=== PATIENT | male | born 1980 | race Caucasian/White ===

== ENCOUNTER 2016-11-29 10:44 | Emergency (ER) | payer OTHER ==
[2016-11-29 10:57] VITALS: BP 114/81; PULSE 84; RESP 18; TEMP 97.8; O2SAT 97
--- NOTE | 2016-11-29 13:09 | C.PDOC ---
History Of Present Illness 36 year old male presents to the ED requesting information for a dental clinic. Patient states he has multiple dental caries and denies drainage from the gums, halitosis, fever, or any other complaints at this time. Chief Complaint (Nursing): Dental Pain History Per: Patient History/Exam Limitations: no limitations Onset/Duration Of Symptoms: Days Current Symptoms Are (Timing): Still Present Severity: Mild Past Medical History Reviewed: Historical Data, Nursing Documentation, Vital Signs Vital Signs: Last Vital Signs Temp 97.8 F 11/29/16 10:55 Pulse 84 11/29/16 10:55 Resp 18 11/29/16 10:55 BP 114/81 11/29/16 10:55 Pulse Ox 97 11/29/16 13:10 - Medical History PMH: No Chronic Diseases Family History: States: Unknown Family Hx - Social History Hx Alcohol Use: No Hx Substance Use: No Review Of Systems Except As Marked, All Systems Reviewed And Found Negative. Constitutional: Negative for: Fever ENT: Positive for: Other (+Dental caries). Negative for: Throat Pain Physical Exam - Physical Exam Appears: Non-toxic, No Acute Distress Skin: Normal Color, Warm, Dry Head: Atraumatic, Normacephalic Oral Mucosa: Moist Teeth: Caries (+Multiple dental caries), No Tender To Palpation, No Avulsed Throat: Normal, No Erythema, No Exudate Neck: Supple Neurological/Psych: Oriented x3, Normal Speech, Normal Cognition ED Course And Treatment O2 Sat by Pulse Oximetry: 97 (Room air) Pulse Ox Interpretation: Normal Progress Note: Rx given and patient given information regarding dental clinic. Disposition - Disposition Referrals: [facility]Outside[facility] Disposition: HOME/ ROUTINE Disposition Time: 11:45 Condition: GOOD Additional Instructions: Thank you for letting us take care of you today. Your provider was Dr. Knott. You were treated for dental pain. The emergency medical care you received today was directed at your acute symptoms. If you were prescribed any medication, please fill it and take as directed. It may take several days for your symptoms to resolve. Return to the Emergency Department if your symptoms worsen, do not improve, or if you have any other problems. Please contact your doctor or call one of the physicians/clinics you have been referred to that are listed on the Patient Visit Information form that is included in your discharge packet. Bring any paperwork you were given at discharge with you along with any medications you are taking to your follow up visit. Our treatment cannot replace ongoing medical care by a primary care provider (PCP) outside of the emergency department. Thank you for allowing the [facility] team to be part of your care today. Follow up with a dental clinic for care. We have provided you with some contact information. Prescriptions: Ibuprofen [Motrin] 600 mg PO Q6 PRN #20 tab PRN Reason: Pain, Moderate (4-7) Instructions: Dental Caries (ED) Forms: Gen Discharge Inst Ivorian Print Language: ARMENIAN - Clinical Impression Clinical Impression: Dental caries - Scribe Statement The provider has reviewed the documentation as recorded by the Scribe Chapito Collado. Provider Attestation: All medical record entries made by the Scribe were at my direction and personally dictated by me. I have reviewed the chart and agree that the record accurately reflects my personal performance of the history, physical exam, medical decision making, and the department course for this patient. I have also personally directed, reviewed, and agree with the discharge instructions and disposition.
== END 2016-11-29 12:04 | disposition home or self-care (01) ==
LOC: C.ER 10:44
DX: K02.9 Dental caries, unspecified (principal)

== ENCOUNTER 2016-12-28 21:39 | Emergency (ER) | payer MEDICAID, OTHER ==
[2016-12-28] MEDS ORDERED: Naproxen 550 mg Tab PO STA (22:07)
[2016-12-28] MEDS ORDERED: Naproxen 550 mg Tab PO ONE (22:09)
[2016-12-28 22:10] VITALS: BP 128/80; PULSE 69; RESP 18; TEMP 98.3; O2SAT 99
--- NOTE | 2016-12-28 22:12 | C.PDOC ---
History Of Present Illness Patient is a 36 year old male who presents to the ER with a complaint of right sided dental pain intermittently for the past 6 months. Patient states he was chewing an apple two days ago which exacerbated the pain. Patient also reports eating rice, a sandwich, and drinking milk today. Patient had an ED evaluation for the same symptoms one month ago, patient states he felt better and did not follow up. Patient also complaints of feeling pain and swelling when swallowing and states he gets these symptoms whenever he gets dental pain. Denies any recent trauma, fever, or vomiting. 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) History/Exam Limitations: language barrier Onset/Duration Of Symptoms: Days (6 months), Intermittent Episodes Current Symptoms Are (Timing): Still Present Recent travel outside of the [place] States: No Past Medical History Reviewed: Historical Data, Nursing Documentation, Vital Signs Vital Signs: Last Vital Signs Temp 98.3 F 12/28/16 22:10 Pulse 69 12/28/16 22:10 Resp 18 12/28/16 22:10 BP 128/80 12/28/16 22:10 Pulse Ox 99 12/28/16 22:10 - Medical History PMH: No Chronic Diseases Surgical History: No Surg Hx Family History: States: Unknown Family Hx - Social History Hx Alcohol Use: No Hx Substance Use: No Review Of Systems Constitutional: Negative for: Fever ENT: Positive for: Mouth Pain (Dental, right side) Gastrointestinal: Negative for: Vomiting Physical Exam - Physical Exam Appears: Well, Non-toxic, No Acute Distress Skin: Normal Color, Warm, Dry Head: Atraumatic, Normacephalic Eye(s): bilateral: Normal Inspection, EOMI Ear(s): Bilateral: Normal Nose: Normal Oral Mucosa: Moist Tongue: Normal Appearing, No Swelling, No Erythema Lips: No Swelling Teeth: Caries (Large, 2nd right mandibular premolar), Tender To Palpation (2nd right mandibular premolar) Gingiva: Erythema (around base of 2nd mandibular premolar), Swelling, Tender, No Abscess Throat: Normal, No Erythema, No Exudate, No Drooling Neck: Normal, Normal ROM, Supple Lymphatic: Adenopathy (Right sided ) Chest: Symmetrical, No Tenderness Cardiovascular: Rhythm Regular Respiratory: Normal Breath Sounds, No Accessory Muscle Use, Other (Speaking in complete sentences) Neurological/Psych: Oriented x3, Normal Speech, Other (No focal deficits) ED Course And Treatment Progress Note: Neck x-ray ordered, results show no acute abnormalities. Amoxicillin PO, lidocaine PO, and anaprox PO administered. Upon reevaluation, patient feels better and is able to tolerate PO. Speaking in full sentences. Patient will be discharged home and advised to follow up with dentist. Disposition - Disposition Referrals: [facility] [place] [Outside] Disposition: HOME/ ROUTINE Disposition Time: 22:09 Condition: STABLE Additional Instructions: Follow up with your dentist in tomorrow for further evaluation. Take medications as prescribed. Return to the emergency department at any time if symptoms persist or worsen. mutabaeat daniels tabib al'asnan alkhass bik fi alghad limazid min alttaqyiim. tanawal al'adwiat luther hu muhdd. aleawdat 'iilaa qism alttawari fi 'ay waqt ' iidha aistamarrat al'aerad 'aw tazdad shrestha'a. Prescriptions: Amoxicillin 875 mg PO BID #14 tablet Naproxen [Naprosyn] 1 tab PO BID PRN #20 tab PRN Reason: Pain Instructions: Toothache (ED) - Clinical Impression Clinical Impression: Toothache - Scribe Statement The provider has reviewed the documentation as recorded by the Scribanna Franco All medical record entries made by the Scribe were at my direction and personally dictated by me. I have reviewed the chart and agree that the record accurately reflects my personal performance of the history, physical exam, medical decision making, and the department course for this patient. I have also personally directed, reviewed, and agree with the discharge instructions and disposition.
--- NOTE | 2016-12-29 09:17 | RAD ---
PROCEDURE: Radiographs of the neck (soft tissue). HISTORY: pain COMPARISON: None. TECHNIQUE: Frontal and Lateral Radiographs of the neck, optimized for soft tissue visualization. FINDINGS: SOFT TISSUES: Unremarkable. No radiopaque foreign body seen. CERVICAL SPINE: Grossly unremarkable. OTHER FINDINGS: None. IMPRESSION: Unremarkable radiographs of the soft tissues of the neck. Preliminary report was submitted by virtual Radiology.
== END 2016-12-28 22:45 | disposition home or self-care (01) ==
LOC: C.ER 21:39
DX: K08.89 Other specified disorders of teeth and supporting structures (principal)

== ENCOUNTER 2017-01-03 13:42 | Emergency (ER) | payer OTHER ==
[2017-01-03 13:56] VITALS: BP 110/79; PULSE 84; RESP 16; TEMP 98; O2SAT 100
--- NOTE | 2017-01-03 14:40 | C.PDOC ---
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 36 yr old male presents to the ER for reevaluation of right sided tooth ache for the past 1 week. Patient states , pain is intermittent for past few months and worse for past week. Pt noted some swelling over Right lower face for the past 3-4 days associated with Right lower toothache. Pain is localized worse with chewing and pressure to the Right lower tooth. Patient was seen here in ED on 12/28/2016 for same complaint when received prescription for amoxicillin, tramadol and reports no improvement. Patient states " I took a 500mg dose of Amoxicillin from a friend which helped with the facial swelling" and is requesting the same medication. Otherwise, Patient denies high fever, chills, headache, dizziness, vertigo, trismus, drooling, CP, SOB, dyspnea, cough, denies recent dental work, throat swelling, neck pain. Ambulate to ED for evaluation, not in any apparent distress. Time Seen by Provider: 01/03/17 14:05 Chief Complaint (Nursing): Dental Pain History Per: Patient History/Exam Limitations: no limitations Onset/Duration Of Symptoms: Days (1 week) Past Medical History Reviewed: Historical Data, Nursing Documentation, Vital Signs Vital Signs: Last Vital Signs Temp 98 F 01/03/17 13:54 Pulse 84 01/03/17 13:54 Resp 16 01/03/17 13:54 BP 110/79 01/03/17 13:54 Pulse Ox 100 01/03/17 15:40 Family History: States: No Known Family Hx - Social History Hx Alcohol Use: No Hx Substance Use: No Review Of Systems Except As Marked, All Systems Reviewed And Found Negative. Constitutional: Negative for: Fever ENT: Positive for: Other ((+) Right sided tooth ache and swelling ). Negative for: Throat Swelling Musculoskeletal: Negative for: Neck Pain Neurological: Negative for: Weakness, Numbness Physical Exam - Physical Exam Appears: Well, Non-toxic, No Acute Distress Skin: Warm, No Dry Nose: No Discharge Oral Mucosa: Moist, No Drooling, No Trismus Tongue: Normal Appearing, No Swelling Lips: Normal Appearing, No Swelling Teeth: Caries (large cavity over Right lower overlying 2pre-and 1st molar), Tender To Palpation (Right lower overlying 2pre-and 1st molar) Gingiva: Erythema (Right lower overlying 2pre-and 1st molar), Swelling (Right lower overlying 2pre-and 1st molar), Abscess (early over Right lower overlying 2premolar, no flactulance.) Throat: Normal, No Erythema, No Exudate, No Drooling Neck: Normal ROM, Trachea Midline, Supple Lymphatic: No Adenopathy (cervical) Chest: Symmetrical Respiratory: No Decreased Breath Sounds, No Accessory Muscle Use, No Rales, No Rhonchi, No Stridor, No Wheezing Extremity: No Pedal Edema Neurological/Psych: Oriented x3, Normal Speech, Normal Motor ED Course And Treatment O2 Sat by Pulse Oximetry: 100 Pulse Ox Interpretation: Normal Progress Note: Discharge plan discused via comp translation. On re-eavluation, pt is afebrile, hemodynamicaly stable. NOn-toxic. Tolearte Po well in ED. PusleOx 100% RA. neck: (-) meningeal sign, (-) JVD, no palpable mass, Thyroid midline. ENT: exam c/w early tooth abscess. uvula midline, no edema. No evidenc eof faciall cellulitis. No trismus, no drooling. Lungs: CTa B/L, BS equal B/L. neurologicaly intact. Pt advised to switch antibiotic from Amoxicillin to Clindamycin. Follow up with dentist in 1-2 days for re- evaluation/imaging/ change in abx tx and further treatment as need. return to Ed if any new changes. Disposition Counseled Patient/Family Regarding: Diagnosis, Need For Followup, Rx Given - Disposition Referrals: [facility] [place] [Provider Group] [facility] [Provider Group] Disposition: HOME/ ROUTINE Disposition Time: 14:38 Condition: STABLE Additional Instructions: CHANGE ANTIBIOTIC TO DIFFERENT- CLINDAMYCIN WARM SALTY WATER TOOTH BATH 2-3 TIMES DAILY FOR 5 MINUTES FOLLOW UP WITH DENTIST FOR FURTHER EVALUATION AND TREATMENT OF TOOTH ABSCESS OR SWITCH IN ANTIBIOTIC NEED RETURN TO ED IF ANY NEW CHANGES. 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 - Scribe Statement The provider has reviewed the documentation as recorded by the Scribe Charity Ramirez All medical record entries made by the Scribe were at my direction and personally dictated by me. I have reviewed the chart and agree that the record accurately reflects my personal performance of the history, physical exam, medical decision making, and the department course for this patient. I have also personally directed, reviewed, and agree with the discharge instructions and disposition.
== END 2017-01-03 14:52 | disposition home or self-care (01) ==
LOC: C.ER 13:42
DX: K04.7 Periapical abscess without sinus (principal)

== ENCOUNTER 2018-10-25 23:55 | Emergency (ER) | payer SELFPAY | END 2018-10-26 03:50 | disposition home or self-care (01) | LOC: C.ER 23:55 ==

== ENCOUNTER 2018-11-04 02:29 | Emergency (ER) | payer SELFPAY ==
[2018-11-04 02:46] VITALS: TEMP 97.6; O2SAT 96
[2018-11-04] MEDS ORDERED: Albuterol 0.083% Inhal Sol (2.5 mg/3 mL) UD INH STA (03:35)
[2018-11-04] MEDS ORDERED: Ipratropium 0.02% Inhal Soln (0.5 mg/2.5 ml) UD IH STA (03:35)
[2018-11-04] MEDS ORDERED: Ipratropium 0.02% Inhal Soln (0.5 mg/2.5 ml) UD IH ONE (03:49)
[2018-11-04] MEDS ORDERED: Albuterol 0.083% Inhal Sol (2.5 mg/3 mL) UD ONE (03:49)
--- NOTE | 2018-11-04 04:54 | C.PDOC ---
History Of Present Illness The patient is a 37-year-old male who was evaluated in this ED on 10/25 for complaints of difficulty breathing. Patient reported smoking for around 20 years, and states that he has asthma. Patient was discharged with prescriptions for Albuterol, Prednisone and Z-pack. Patient returns to the ED today requesting a Z-pack because he has started to feel short of breath again. Patient admits he is still smoking. He denies fever, chills, chest pain. Time Seen by Provider: 11/04/18 02:30 Chief Complaint (Nursing): Medical Clearance Past Medical History Vital Signs: Last Vital Signs Temp 97.6 F 11/04/18 02:42 Pulse 79 11/04/18 02:42 Resp 16 11/04/18 02:42 BP 121/75 11/04/18 02:42 Pulse Ox 96 11/04/18 02:42 Family History: States: Unknown Family Hx - Social History Hx Alcohol Use: No Hx Substance Use: No Review Of Systems Constitutional: Negative for: Fever, Chills, Weakness Eyes: Negative for: Vision Change Cardiovascular: Negative for: Chest Pain Respiratory: Positive for: Shortness of Breath. Negative for: Cough Gastrointestinal: Negative for: Nausea, Vomiting Musculoskeletal: Negative for: Back Pain Skin: Negative for: Rash Neurological: Negative for: Weakness, Numbness, Headache, Dizziness Physical Exam - Physical Exam Appears: Well, Non-toxic, No Acute Distress Skin: Normal Color, Warm, No Rash Head: Atraumatic, Normacephalic Eye(s): bilateral: Normal Inspection, PERRL, EOMI Nose: Other (clear mucus discharge in bilateral nares ) Oral Mucosa: Moist Throat: Normal (no swelling or injection ), No Erythema, Other (airway patent ) Neck: Normal ROM, Supple Chest: Symmetrical Respiratory: No Accessory Muscle Use, Wheezing (bilaterally ), Other (speaking in full sentences, good air entry ) Gastrointestinal/Abdominal: Soft, No Distention Back: Other (ambulating with steady upright gait) Extremity: Normal ROM Extremity: Bilateral: Atraumatic Pulses: Left Radial: Normal, Right Radial: Normal Neurological/Psych: Oriented x3, Normal Cranial Nerves (grossly intact ) ED Course And Treatment O2 Sat by Pulse Oximetry: 96 Pulse Ox Interpretation: Normal Medical Decision Making Medical Decision Making: Progress: Albuterol INH and Prednisone PO given. this patient has clear lungs after nebulizer treatment and reports feeling better. Explained to patient that his symptoms do not require a Z-pack, and advised him to quit smoking. 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 - Scribe Statement The provider has reviewed the documentation as recorded by the Scribe (Hermelinda Stephenson) All medical record entries made by the Scribe were at my direction and personally dictated by me. I have reviewed the chart and agree that the record accurately reflects my personal performance of the history, physical exam, medical decision making, and the department course for this patient. I have also personally directed, reviewed, and agree with the discharge instructions and disposition.
[2018-11-04 05:27] VITALS: BP 109/67; PULSE 86; RESP 20
== END 2018-11-04 05:15 | disposition home or self-care (01) ==
LOC: C.ER 02:29
DX: J45.909 Unspecified asthma, uncomplicated (principal); R06.2 Wheezing